=== PATIENT | male | born 1995 | race Two or more races ===

== ENCOUNTER 2023-04-01 20:16 | Emergency (ER) | payer SELFPAY ==
[~2023-04-01] VITALS: Ht 180.3 cm; Wt 88.5 kg
[2023-04-01 20:45] VITALS: BP 150/80; TEMP 98
[2023-04-01 23:24] VITALS: O2SAT 97
== END 2023-04-01 23:25 | disposition left against medical advice (07) ==
LOC: ER 20:26
DX: R55 Syncope and collapse (principal); Z53.21 Procedure and treatment not carried out due to patient leaving prior to being seen by health care provider